=== PATIENT | male | born 1960 | race Caucasian/White ===

== ENCOUNTER → 2016-08-29 | Outpatient (CLI) | payer BC ==
--- NOTE | 2016-08-29 21:00 | PN ---
This is a compliancy follow-up from the sleep center. 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 The patient initially was offered CPAP therapy. The patient underwent CPAP/BiPAP titration that was ( ) unsuccessful as the patient had central sleep apnea emerging at the time of titration. He was subsequently brought him in to an ASV titration that turned out to be much successful. His sleep efficiency remained poor. He was sent home on an ASV treatment with a minimum EPAP pressure of 11, maximum EPAP pressure of 15, minimum pressure support of 5, maximum pressure support of 15. He is currently utilizing an airfit P10 nasal pillow. On today's evaluation, the patient reports that he is benefiting from the treatment. He is much more alert and awake during the day. No major sleepiness or tiredness or fatigue. Fallbrook score is down to 2. Based on the compliance data on his ASV machine, the patient is utilizing his machine every night without any interruption. His use is 100%. His average ASV use is around 4.1 hours per night and his use for more than 4 hours is less than 70%. He is having leaks around his mask, and mask seal is not perfect. His leak is around 3 liters per minute. His AHI dropped down to 6.6 from a baseline of 24. Despite this leaks around the mask and a poor mask seal, the patient is clinically improved and is benefiting from the treatment. I suspect that the patient is leaking also from his mouth. BP is 143/73, pulse 98, respirations 16. Weight is 244, temperature 97.0. Saturating is 97% on room air. GENERAL APPEARANCE: Calm, comfortable. HEENT: Short neck, crowding posterior pharynx, micrognathia. Crowding of the posterior pharynx is present. LUNGS: Clear to auscultation. HEART: Sounds are regular rate and rhythm. Normal S1, S2. No S3, no S4 no murmurs. ABDOMEN: Soft, nontender. No organomegaly. EXTREMITIES: No edema. No cyanosis, or clubbing. IMPRESSION: 1. Complex obstructive sleep apnea with the treatment emergent central apneas, currently ASV treatment. 2. Poor mask seal probably related to leaks either from the mouth or around the mask. 3. Improving hypersomnia and sleepiness. Fallbrook score is down to 3. 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 PLAN: 1. Encourage weight loss. 2. Continue ASV treatment at the same pressure setting. 3. We had a lengthy evaluation on this patient to help him with his mask seal. We offered him a Rodriguez FX mask, which will provide this patient better seal around his nose and at the same time we gave him a chinstrap to use if he shows any leaks around this mask. 4. See me back in 30 days for a follow-up compliance data. His average CPAP use is to decrease more than 4 hours and he needs to use his ASV machine every night for longer hours. He was made aware of this. 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 Will continue to follow.
== END | disposition home or self-care (01) ==
LOC: SLEEP 16:44
PROVIDERS: ATTEND Internal Medicine Critical Care Medicine
DX: G47.33 Obstructive sleep apnea (adult) (pediatric) (principal); G47.10 Hypersomnia, unspecified; E66.9 Obesity, unspecified

== ENCOUNTER → 2016-11-07 | Outpatient (CLI) | payer BC ==
--- NOTE | 2016-11-07 20:41 | PN ---
This patient is 56 with moderate to severe obstructive sleep apnea. The patient has been diagnosed having complex CAMILA, with treatment emergent central apneas and currently he is on ASV treatment. He is coming in for a compliancy check. 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 He seems to be benefiting from treatment and the patient reports to be much more awake and alert during the day. I checked his compliancy data and the patient has been showing excellent compliancy. His average use of the ASV machine is around 5.4 hours per night. His leak factor is 22 L per minute. His AHI while on treatment is down to 3.3 and he is using an AirFit F20 large size full face mask. His ASV settings are EPAP, minimum of 11, EPAP maximum of 15. Pressure support minimum of 5. Maximum of 15. His sleep quality is improved and the patient is waking up much more alert and refreshed. While driving he does not fall asleep, nor he dozes off. BP is 124/68. Pulse 84. Respirations 16. Temperature 98.7. Saturation 94% on room air. Weight is 246. Height is 5 foot 6 inches. BMI is 39.7. General appearance, calm, comfortable. HEENT: Short neck, crowding of posterior pharynx. There is no goiter. No neck masses. Lungs diminished. Heart sounds regular rate and rhythm. Normal S1, S2. No S3, no murmurs. Abdomen soft. Nontender. No organomegaly. Extremities no cyanosis, clubbing or edema. IMPRESSION: 1. Complex obstructive sleep apnea with treatment emergent central sleep apnea currently on ASV treatment with excellent clinical response and compliance. 2. Hypersomnia, improved . 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 Morbid obesity. PLAN: Clinically improved. Compliance data shows excellent use and the patient is benefitting from the treatment. I do not see any issues for this patient to have his DOT certification renewed. STEVEN
== END ==
LOC: SLEEP 13:10
PROVIDERS: ATTEND Internal Medicine Critical Care Medicine
DX: G47.33 Obstructive sleep apnea (adult) (pediatric) (principal); G47.10 Hypersomnia, unspecified; E66.01 Morbid (severe) obesity due to excess calories

== ENCOUNTER → 2017-12-04 | Outpatient (CLI) | payer BC ==
--- NOTE | 2017-12-04 16:02 | PN ---
PROGRESS NOTE PROGRESS NOTE: Sleep apnea. This is a 57-year-old male patient coming in for annual check regarding obstructive sleep apnea. 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 He is morbidly obese and he is currently being treated with an ASV mode of ventilation for complex treatment emergent central apneas. The patient had an AHI of 24, and he was given ASV mode of ventilation with an EPAP minimum of 11, maximum of 15, with a pressure support minimum of 5 and a maximum of 15. On today's evaluation, the patient has been utilizing his ASV machine every night without any interruption. He has been averaging around 4.9 hours of machine use every night. His machine use for more than 4 hours is 23 out of 30. His maximum pressure average is 19.8 and an expiratory pressure of 11.7. Leak factor is L/minute. His AHI while on treatment is down to 0.6. His sleep quality is good. His weight is stable. He has gained only 4 pounds over the past one year. He is morbidly obese. He is interested in gastric sleeve and he is working with Dr. Del Valle in that regard. Currently he has a lap band in place. His sleep quality is good. He continues to benefit from the sleep apnea treatment. He does not fall asleep while driving. He does not fall asleep during day-to-day activities and is widely alert and awake during the day. His current Sturkie score is at 2. REVIEW OF SYSTEMS: Twelve-point review of systems was done. Positive findings are all mentioned above in the history of present illness. The patient is using an AirFit F20 large-size full- face mask. No nocturnal heartburn or shortness of breath or chest pain. No palpitation. No seizure activity. No falls. No difficulty with concentration or memory. No difficulties with lower extremity edema wounds. No nausea or vomiting. No abdominal pain. PHYSICAL EXAMINATION: BP is 145/81, pulse 106, respirations 16, temperature 98.1, saturation 94% on room air. Weight is 250. Height is 5 feet 7 inches. Sturkie score is 2. BMI 39.1. GENERAL APPEARANCE: Calm, comfortable. Head is atraumatic, normocephalic. NECK: Supple, short. Crowding of posterior pharynx. There is no goiter or neck masses. LUNGS: Clear to auscultation. HEART: Heart sounds are regular rate and rhythm. Normal S1, S2. No S3. No S4. No murmurs. ABDOMEN: Soft, nontender. No organomegaly. EXTREMITIES: No edema. No cyanosis or clubbing. NEUROLOGIC: Alert and oriented x3. No focal neurological deficits. PSYCHIATRIC: Negative for anxiety or depression. SKIN: Negative for any wounds or ulceration. IMPRESSION: 1. Sleep apnea, complex; combination obstructive with treatment emergent central apnea, currently on ASV mode of treatment. 2. Hypersomnia, recovered. 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 4. Morbid obesity with interval 4-pound weight gain. PLAN: Treatment is successful. The patient continues to benefit and he is largely awake and alert during the day. No major hypersomnia or sleepiness during the day. Encouraged losing weight. Proceed with ASV mode of ventilation with the same settings. Renew the CPAP supplies, including the full-face mask, AirFit F20 large size. Sleep hygiene measures are good. Will need to extend his sleep hours to an average of 7-1/2 hours is performed. Sturkie score is down to 2. See me back in a year's time in followup. MMODL / IJN: [id number] /
== END | disposition home or self-care (01) ==
LOC: SLEEP 13:54
PROVIDERS: ATTEND Internal Medicine Critical Care Medicine
DX: G47.33 Obstructive sleep apnea (adult) (pediatric) (principal); E66.01 Morbid (severe) obesity due to excess calories; Z68.39 Body mass index [BMI] 39.0-39.9, adult

== ENCOUNTER → 2018-05-16 | Day surgery (SDC) | payer BC ==
[2018-05-15 09:08] VITALS: BMI 38.8
[~2018-05-16] MED LIST: SIMETHICONE 40 MG/0.6 ML DROPS 2,000 MG/30 ML BOTTLE PO ONE
== END ==
LOC: ORWHC2ENDO 06:50
PROVIDERS: ATTEND Internal Medicine Gastroenterology
DX: Z53.9 Procedure and treatment not carried out, unspecified reason (principal)

== ENCOUNTER → 2019-02-25 | Outpatient (CLI) | payer BC ==
--- NOTE | 2019-02-25 16:51 | P.BASOAP ---
Subjective Progress Note Date: 02/25/19 Principal diagnosis: Morbid obesity Patient well-known to our service. Patient underwent prior laparoscopic banding and conversion to sleeve gastrectomy in July of this year. Patient has lost proximally 5 pounds in the last 1-2 months. Feels well. No nausea or vomiting. No GERD. Does not take antiacids. Good protein intake. Had labs recently and Dr. Gill's office. Objective - Exam Abdomen: Soft, nontender, nondistended Assessment/Plan (1) Morbid obesity Narrative/Plan: Patient doing well at this time. Continue dietary and exercise regimen. We'll review 6 month labs already drawn. Follow-up 2 months. Plan: Date: Initial Weight: Initial BMI: Current Weight: Current BMI: Type of Surgery: Total Volume in Band: Previous Volume: Volume Removed: Volume Added: Band Size:
[2019-02-25 18:41] VITALS: BP 112/74; PULSE 86; TEMP 97.9; BMI 32.1
== END ==
LOC: BARWHC3 16:14
PROVIDERS: ATTEND Surgery
DX: E66.01 Morbid (severe) obesity due to excess calories (principal); Z98.84 Bariatric surgery status; Z68.32 Body mass index [BMI] 32.0-32.9, adult
CPT/HCPCS: 99211

== ENCOUNTER → 2019-04-22 | Outpatient (CLI) | payer BC ==
--- NOTE | 2019-04-22 16:54 | P.BASOAP ---
Subjective Progress Note Date: 04/22/19 Principal diagnosis: Morbid obesity Patient returns for bariatric evaluation. Doing well since last visit. 2.5 pound weight gain since last visit. He is still losing inches. Still eating less than he used to. No reflux. No antiacids. Denies nausea vomiting. No pain. Objective - Exam Abdomen: Soft, nontender, nondistended Assessment/Plan (1) Morbid obesity Narrative/Plan: Continue dietary and exercise regimen. Follow-up 6 weeks. Plan: Date: Initial Weight: Initial BMI: Current Weight: Current BMI: Type of Surgery: Total Volume in Band: Previous Volume: Volume Removed: Volume Added: Band Size:
[2019-04-22 17:06] VITALS: BP 131/84; PULSE 96; TEMP 98.1; BMI 32.5
== END | disposition home or self-care (01) ==
LOC: BARWHC3 16:34
PROVIDERS: ATTEND Surgery
DX: E66.01 Morbid (severe) obesity due to excess calories (principal); Z68.38 Body mass index [BMI] 38.0-38.9, adult
CPT/HCPCS: 99211

== ENCOUNTER → 2019-05-06 | Outpatient (CLI) | payer BC ==
--- NOTE | 2019-05-06 17:26 | P.PN ---
Progress Note - Text Progress Note Date: 05/06/19 68-year-old male patient who is known to me and is coming in for an annual check regarding obstructive sleep apnea. 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 He has been diagnosed having obstructive sleep apnea. He is currently being treated with a ASV BiPAP knowing that he has a complex treatment emerging central apneas. He is currently on ASV mode with a EPAP minimum of 11, maximum 15, pressure support minimum of 5 and a maximum of 15. The patient since his last evaluation has lost significant amount of weight as the patient underwent a gastric sleeve procedure. At the time of his diagnoses used to weigh around 260 pounds. On today's evaluation has been significant improvement in his body weight and he is down to 204 pounds. His current BMI 32.4. He is feeling great. Much more energetic and refreshed. I checked the compliance data on his machine. It seems that his compliance data has gone down over the past 1 year. I noted that the patient has been averaging around 2.2 hours of machine use per night. His average pressures are 20/12 cm of water with a 0 L of leak and a t idal volume of 520 mL respiratory rate of 16 and an AHI being down to 1.3. His minute ventilation is at 8.3. Is using an airfit F20 large size full facemask. Note that his baseline AHI was 24. He reports that he is fully alert and awake during the day especially when he is driving. Never been involved in a motor vehicle accident because of feeling drowsy or sleepy. No new onset medical problems. No angina. No palpitation. No chest pain. Review of systems a complete review of system was done and is positive for weight loss as the patient has lost considerable amount of weight in the order of 55-60 pounds. BP is 151/83 pulse is 86 respirations 16 with a body weight of 204 and a temperature of 98.0 and his saturation is 95% on room air and her weight is 204 pounds with a height of 56 with a BMI of 32.4. The patient appeared well nourished and normally developed. Vital signs as documented. Head exam is unremarkable. No scleral icterus or corneal arcus noted. Neck is without jugular venous distension, thyromegaly, or carotid bruits. Carotid upstrokes are brisk bilaterally. Lungs are clear to auscultation and percussion. Cardiac exam reveals the PMI to be normally sized and situated. Rhythm is regular. First and second heart sounds normal. No murmurs, rubs or gallops. Abdominal exam reveals normal bowel sounds, no masses, no organomegaly and no aortic enlargement. Extremities are nonedematous and both femoral and pedal pulses are normal.Examination of the skin revealed no evidence of significant rashes, suspicious appearing nevi or other concerning lesions. Neurologically the patient is awake and alert there is no focal neurological deficits. Assessment 1 sleep apnea, complex, a combination of obstructive with treatment emergent central apnea currently being treated with an ASV mode. Based on AHI was 24. The patient underwent gastric sleeve any lost approximately 55-60 pounds. He is feeling better. 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 His compliance he has gotten down as the patient has felt much better after weight loss. I think is reasonable to do a home sleep study to reevaluate the presence and the severity of sleep apnea on the side if treatment is still needed regarding any form of sleep breathing disorder. I'm going to set him up for a home sleep study. I will discuss with him the results and will make further recommendations accordingly. Meanwhile, I would encourage him using the ASV machine. Till we get the results of the home sleep study.
== END ==
LOC: SLEEP 17:01
PROVIDERS: ATTEND Internal Medicine Critical Care Medicine
DX: G47.33 Obstructive sleep apnea (adult) (pediatric) (principal); R63.4 Abnormal weight loss

== ENCOUNTER → 2019-06-17 | Outpatient (CLI) | payer BC ==
[2019-06-17 16:42] VITALS: BP 153/90; PULSE 76; TEMP 98.2; BMI 32.5
--- NOTE | 2019-06-17 16:56 | P.BASOAP ---
Subjective Progress Note Date: 06/17/19 Principal diagnosis: Morbid obesity Patient here for follow-up visit. Doing well since last time. Weight is 208. Sometimes eats too fast. Has had a few episodes of diarrhea and incontinence. Denies heartburn. No nausea or vomiting. Hunger not significantly changed. He is due for one year labs next month. He has been using the gym at least once per week. Objective - Vital Signs Vital signs: Vital Signs Temp 98.2 F 06/17/19 16:31 Pulse 76 06/17/19 16:31 Resp BP 153/90 06/17/19 16:31 Pulse Ox Intake & Output 06/16/19 06/17/19 06/17/19 18:59 06:59 18:59 Weight 94.347 kg - Exam Physical exam: General: Well-developed, well-nourished HEENT: Normocephalic, sclerae nonicteric Abdomen: Nontender, nondistended Extremities: No edema Neuro: Alert and oriented Assessment/Plan (1) Morbid obesity Narrative/Plan: Patient overall doing fairly well. Continue increasing exercise frequency. Continue monitoring caloric intake. We'll check one year labs. Follow-up 3 months. Monitor symptoms of fecal incontinence. Plan: Date: 06/17/19 Initial Weight: 117.934 kg Initial BMI: 40.7 Current Weight: 94.347 kg Current BMI: 32.5 Type of Surgery: Total Volume in Band: Previous Volume: Volume Removed: Volume Added: Band Size:
[2019-06-17 17:47] LABS: HCT 39.5 % (39.0-53.0); MCH 32.6 pg (25.0-35.0); MCHC 32.9 g/dL (31.0-37.0); MCV 99.1 fL (80.0-100.0); Mean Platelet Volume 8.1; Platelet Count 225 k/uL (150-450); RBC 3.98 m/uL (4.30-5.90); RDW 12.3 % (11.5-15.5); WBC 6.2 k/uL (3.8-10.6)
[2019-06-17 23:40] LABS: African American GFR (CKD) 114.1 (60.0-200.0); Albumin 4.1 g/dL (3.80-4.90); Albumin/Globulin Ratio 1.71 (1.60-3.17); Calcium 9.3 mg/dL (8.7-10.3); Globulin 2.4 g/dL (1.6-3.3); Non-African American GFR(CKD) 98.5 (60.0-200.0); Potassium 5.1 mmol/L (3.5-5.5); Total Bilirubin 0.3 mg/dL (0.2-1.2); Total Protein 6.5 g/dL (6.2-8.2)
[2019-06-18 00:43] LABS: Folate, Serum 16.8 ng/mL
== END | disposition home or self-care (01) ==
LOC: BARWHC3 16:19
PROVIDERS: ATTEND Surgery
DX: E66.01 Morbid (severe) obesity due to excess calories (principal); R15.9 Full incontinence of feces; Z68.32 Body mass index [BMI] 32.0-32.9, adult
CPT/HCPCS: 36415; 80053; 82306; 82607; 82746; 83540; 84425; 85027; 99211

== ENCOUNTER → 2019-12-30 | Outpatient (CLI) | payer BC ==
[2019-12-30 16:41] VITALS: BP 161/72; PULSE 85; RESP 16; TEMP 98.3; BMI 33.8
--- NOTE | 2019-12-30 17:34 | P.BASOAP ---
Subjective Progress Note Date: 12/30/19 Principal diagnosis: Morbid obesity Patient returns today last seen in June. Diarrhea has improved. He has gained 8 pounds which she states is related to decreased activity and more snacking. Thinks he should be drinking more liquids. Denies nausea or vomiting. No heartburn. No vomiting. 8 pound weight gain. Objective - Vital Signs Vital signs: Vital Signs Temp 98.3 F 12/30/19 16:30 Pulse 85 12/30/19 16:30 Resp 16 12/30/19 16:30 BP 161/72 12/30/19 16:30 Pulse Ox Intake & Output 12/29/19 12/30/19 12/30/19 18:59 06:59 18:59 Weight 97.976 kg - Exam Abdomen: Soft, nontender, nondistended Assessment/Plan (1) Morbid obesity Narrative/Plan: Patient doing well overall. Continue increasing exercise and monitor caloric intake. Will have patient return for reevaluation 3 months. Plan: Date: 12/30/19 Initial Weight: 117.934 kg Initial BMI: 40.7 Current Weight: 97.976 kg Current BMI: 33.8 Type of Surgery: Total Volume in Band: Previous Volume: Volume Removed: Volume Added: Band Size:
== END | disposition home or self-care (01) ==
LOC: BARWHC3 16:29
PROVIDERS: ATTEND Surgery
DX: E66.01 Morbid (severe) obesity due to excess calories (principal); Z68.33 Body mass index [BMI] 33.0-33.9, adult
CPT/HCPCS: 99211

== ENCOUNTER → 2020-03-30 | Outpatient (CLI) | payer BC ==
[2020-03-30 16:32] VITALS: BP 154/73; PULSE 103; RESP 16; TEMP 97.5; BMI 34.0
--- NOTE | 2020-03-30 16:42 | P.BASOAP ---
Subjective Progress Note Date: 03/30/20 Principal diagnosis: Morbid obesity Patient returns for evaluation. Last seen in December. Patient has decreased his snacking. Eating less than previously. Not very active at this time unfortunately. Weight has gone up 1 pound. His recently broke her foot. Denies heartburn. No vomiting. Objective - Vital Signs Vital signs: Vital Signs Temp 97.5 F L 03/30/20 16:30 Pulse 103 H 03/30/20 16:30 Resp 16 03/30/20 16:30 BP 154/73 03/30/20 16:30 Pulse Ox Intake & Output 03/29/20 03/30/20 03/30/20 18:59 06:59 18:59 Weight 98.43 kg - Exam Abdomen: Soft, nontender, nondistended Assessment/Plan (1) Morbid obesity Narrative/Plan: Patient overall doing fairly well. He has had slight weight gain. Patient is very inactive currently. Discussed possibility of utilizing exercise videos well at home. He will consider. Return visit 3 months. Plan: Date: 03/30/20 Initial Weight: 117.934 kg Initial BMI: 40.7 Current Weight: 98.43 kg Current BMI: 34.0 Type of Surgery: Total Volume in Band: Previous Volume: Volume Removed: Volume Added: Band Size:
== END | disposition home or self-care (01) ==
LOC: BARWHC3 15:56
PROVIDERS: ATTEND Surgery
DX: E66.01 Morbid (severe) obesity due to excess calories (principal); Z68.34 Body mass index [BMI] 34.0-34.9, adult
CPT/HCPCS: 99211

== ENCOUNTER → 2020-08-31 | Outpatient (CLI) | payer BC ==
[2020-08-31 15:17] LABS: HCT 35.8 % (39.0-53.0); HGB 12.4 gm/dL (13.0-17.5); MCH 33.8 pg (25.0-35.0); MCHC 34.6 g/dL (31.0-37.0); MCV 97.7 fL (80.0-100.0); Mean Platelet Volume 8.6; Platelet Count 194 k/uL (150-450); RBC 3.67 m/uL (4.30-5.90); RDW 12.9 % (11.5-15.5); WBC 4.8 k/uL (3.8-10.6)
[2020-08-31 16:00] VITALS: BP 136/88; PULSE 80; TEMP 98.2; BMI 31.8
--- NOTE | 2020-08-31 17:34 | P.BASOAP ---
Subjective Progress Note Date: 08/31/20 Principal diagnosis: Morbid obesity Patient doing better at this time. He changed his job and is now walking approximately 15,000 steps per day at [employer]. He has lost 14 pounds. He is due for annual lab work. Patient considering plastic surgery for chest and abdomen. No heartburn symptoms. Objective - Vital Signs Vital signs: Vital Signs Temp 98.2 F 08/31/20 15:59 Pulse 80 08/31/20 15:59 Resp BP 136/88 08/31/20 15:59 Pulse Ox Intake & Output 08/30/20 08/31/20 08/31/20 18:59 06:59 18:59 Weight 92.079 kg - Exam Abdomen: Soft, nontender, nondistended - Labs CBC & Chem 7: 08/31/20 15:00 Labs: Abnormal Lab Results - Last 24 Hours (Table) 08/31/20 Range/Units 15:00 RBC 3.67 L (4.30-5.90) m/uL Hgb 12.4 L (13.0-17.5) gm/dL Hct 35.8 L (39.0-53.0) % Assessment/Plan (1) Morbid obesity Narrative/Plan: Patient doing well at this time. Continue dietary and exercise regimen. Check 2 year labs. Follow-up 6 months. Plan: Date: 08/31/20 Initial Weight: 117.934 kg Initial BMI: 40.7 Current Weight: 92.079 kg Current BMI: 31.8 Type of Surgery: Total Volume in Band: Previous Volume: Volume Removed: Volume Added: Band Size:
[2020-09-01 00:05] LABS: African American GFR (CKD) 127.6 (60.0-200.0); Albumin/Globulin Ratio 1.67 (1.60-3.17); Anion Gap 6.3 mmol/L (4.00-12.00); BUN/Creat Ratio 31.67 Ratio (12.00-20.00); Calcium 8.6 mg/dL (8.7-10.3); Carbon Dioxide 27.7 mmol/L (21.6-31.8); Globulin 2.4 g/dL (1.6-3.3); Non-African American GFR(CKD) 110.1 (60.0-200.0); Potassium 4.1 mmol/L (3.5-5.5); Total Bilirubin 0.3 mg/dL (0.3-1.2); Total Protein 6.4 g/dL (6.2-8.2)
== END ==
LOC: BARWHC3 13:18
PROVIDERS: ATTEND Surgery
DX: E66.01 Morbid (severe) obesity due to excess calories (principal); Z68.31 Body mass index [BMI] 31.0-31.9, adult
CPT/HCPCS: 80053; 82306; 82607; 82746; 83540; 84425; 85027; 99211

== ENCOUNTER → 2021-02-08 | Outpatient (CLI) | payer BC ==
[2021-02-08 14:24] VITALS: BP 141/78; PULSE 67; TEMP 98.2; BMI 31.1
--- NOTE | 2021-02-08 19:20 | P.BASOAP ---
Subjective Progress Note Date: 02/08/21 Principal diagnosis: Morbid obesity Patient returns for recheck. Doing well since last visit. Was last seen in August. Had to your labs drawn at that time. Hemoglobin slightly low at 12.4 however iron was normal. Since that time he has lost 4 more pounds. Did have some rectal bleeding 1-2 weeks ago. States his last colonoscopy was 2 years ago. He is seeing his primary care physician soon to discuss further workup. States they were discussing possible repeat upper and lower endoscopy which is not unreasonable. Objective - Vital Signs Vital signs: Vital Signs Temp 98.2 F 02/08/21 14:21 Pulse 67 02/08/21 14:21 Resp BP 141/78 02/08/21 14:21 Pulse Ox Intake & Output 02/08/21 02/08/21 02/09/21 06:59 18:59 06:59 Weight 90.265 kg - Exam Abdomen: Soft, nontender, nondistended Assessment/Plan (1) Morbid obesity Narrative/Plan: Patient doing well at this time. Continue increasing her activity levels. Monitor weight loss. He will discuss possible repeat upper and lower endoscopy with his primary care physician. Follow-up Bariatric center 6 months. Plan: Date: 02/08/21 Initial Weight: 117.934 kg Initial BMI: 40.7 Current Weight: 90.265 kg Current BMI: 31.1 Type of Surgery: Total Volume in Band: Previous Volume: Volume Removed: Volume Added: Band Size:
== END ==
LOC: BARWHC3 13:54
PROVIDERS: ATTEND Surgery
DX: E66.01 Morbid (severe) obesity due to excess calories (principal); Z68.31 Body mass index [BMI] 31.0-31.9, adult
CPT/HCPCS: 99211